=== PATIENT | female | born 1955 | race Caucasian/White ===

== ENCOUNTER 2024-03-03 06:09 | Day surgery (SDC) | payer MEDICARE ==
[2024-03-03] MEDS ORDERED: Propofol 200 MG/20 ML SDV IV ONE (06:10)
[2024-03-03] MEDS ORDERED: Lidocaine 2% 100 MG/5 ML Syringe IVPUSH ONE (06:10)
[2024-03-03] MEDS ORDERED: Sodium Chloride 0.9% 10 ML Syringe FLUSH PRN (06:15)
[2024-03-03] MEDS: Lactated Ringers 1,000 ML IV SCH (07:11)
[2024-03-03] MEDS: Simethicone Drops 40 MG/0.6 ML 30 ML Bottle ONE (07:31)
== END 2024-03-03 09:55 | disposition home or self-care (01) ==
LOC: FB.SDS 06:09
PROVIDERS: ATTEND Surgery
DX: Z12.11 Encounter for screening for malignant neoplasm of colon (principal); I48.91 Unspecified atrial fibrillation; Z79.01 Long term (current) use of anticoagulants; Z79.899 Other long term (current) drug therapy
CPT/HCPCS: 00812; A9270-GY; J2704; J7120